=== PATIENT | female | born 2000 | race American Indian/Alaskan Native ===

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

== ENCOUNTER 2020-04-18 13:11 | Emergency (ER) | payer MEDICAID ==
[2020-04-18 13:43] VITALS: BP 124/69
--- NOTE | 2020-04-18 16:56 | Emergency Department Report ---
[facility] Chief Complaint: Eye Problems Stated Complaint: POSS PINK EYE Time Seen by Provider: 04/18/20 16:48 Duration: 5 Days Side: Left Severity: moderate Symptoms: Yes Eye Itching, Yes Eye Redness, Yes Mucous Drainage, No Eye Pain, No Blurred Vision, No H/O Allergic Rhinitis, No Contact Lens Use, No Trauma, No Fever Other History: 19-year-old -Hungarian female presents to the emergency room for left eye drainage that itches and possible pinkeye. Patient states that her daughter has the same symptoms. Patient denies any trauma to the eye no blurred vision no fever no chills no nausea no vomiting. ED Review of Systems ROS: Stated complaint: POSS PINK EYE Other details as noted in HPI Comment: All other systems reviewed and negative ED Past Medical Hx - Past Medical History Previous Medical History?: No Hx Hypertension: No Hx Congestive Heart Failure: No Hx Diabetes: No Hx Deep Vein Thrombosis: No Hx Renal Disease: No Hx Sickle Cell Disease: No Hx Seizures: No Hx Asthma: No Hx COPD: No Hx HIV: No - Surgical History Past Surgical History?: No - Social History Smoking Status: Never Smoker - Medications Home Medications: Home Medications Medication Instructions Recorded Confirmed Last Taken Type Hydrocortisone 2.5% [Hytone 2.5% 1 applicatio TP TID #1 tube 12/08/17 Unknown Rx CREAM] Vitamin 325 tab PO DAILY 04/12/19 04/12/19 04/12/19 08:00 History Ferrous Sulfate [Feosol 325 MG tab] 325 mg PO BID #60 tablet 04/15/19 Unknown Rx HYDROcodone/APAP 5-325 [[place] 1 each PO Q6HR PRN #20 tablet 04/15/19 Unknown Rx 5/325] Ibuprofen [Motrin] 800 mg PO Q8HR PRN #30 tablet 04/15/19 Unknown Rx Erythromycin [Erythromycin Ophth 1 applicator OU QID #1 tube 04/18/20 Unknown Rx Oint] [facility] Exam - Exam General: Vital signs noted. No distress. Alert and acting appropriately. Eye Exam: Left Injection, Left EOMI, Left Mucous Discharge, Neither Eye Foreign Body, Neither Lid Foreign Body HEENT: No Nasal Congestion, No Pharyngeal Erythema Remainder of HEENT: Normal ED Course Vital Signs 04/18/20 13:40 Temperature 98.8 F Pulse Rate 87 Respiratory 17 Rate Blood Pressure 124/69 [Left] O2 Sat by Pulse 98 Oximetry ED Medical Decision Making - Medical Decision Making 19-year-old -Hungarian female presents to the emergency room for left eye drainage that itches and possible pinkeye. Patient states that her daughter has the same symptoms. Patient denies any trauma to the eye no blurred vision no fever no chills no nausea no vomiting. Patient has no known drug allergies we will place her on erythromycin ophthalmic ointment to do 4 times a day for 10 days instructed her to please wash her hands before and after administering medication. Patient can use [id number] Zaditor eyedrops or Pataday. Critical care attestation.: If time is entered above; I have spent that time in minutes in the direct care of this critically ill patient, excluding procedure time. ED Disposition Clinical Impression: Conjunctivitis, left eye Qualifiers: Conjunctivitis type: acute Acute conjunctivitis type: unspecified Qualified Code(s): H10.32 - Unspecified acute conjunctivitis, left eye Disposition: - TO HOME OR SELFCARE Is pt being admited?: No Does the pt Need Aspirin: No Condition: Stable Instructions: Conjunctivitis (ED) Additional Instructions: Wash hands before and after administering the medication. Complete medication as prescribed. You can try [id number] Zaditor eyedrops are great for allergic eyes as well. Prescriptions: Erythromycin [Erythromycin Ophth Oint] 1 applicator OU QID #1 tube Referrals: [facility] [Provider Group] - 3-5 Days Forms: Work/School Release Form(ED)
== END 2020-04-18 17:10 | disposition home or self-care (01) ==
LOC: ED 13:11
DX: H10.32 Unspecified acute conjunctivitis, left eye (principal); Z79.899 Other long term (current) drug therapy
CPT/HCPCS: 99282